=== PATIENT | female | born 1955 | race Caucasian/White ===

== ENCOUNTER → 2023-11-19 13:06 | Outpatient (REF) | payer OTHER, SELFPAY | LOC: WDC 13:06 | PROVIDERS: ATTENDING PHYSICIAN Internal Medicine | DX: Z12.31 Encounter for screening mammogram for malignant neoplasm of breast (principal) | CPT/HCPCS: 77063; 77067 ==

== ENCOUNTER → 2024-01-26 14:02 | Outpatient (REF) | payer OTHER, SELFPAY | LOC: RAD 14:02 | PROVIDERS: ATTENDING PHYSICIAN Physician Assistant; FAMILY PHYSICIAN Internal Medicine | DX: R19.5 Other fecal abnormalities (principal) | CPT/HCPCS: 74177; Q9967 ==

== ENCOUNTER 2025-01-22 14:21 | Emergency (ER) | payer OTHER, SELFPAY ==
[2025-01-22 14:22] VITALS: BP 154/72
--- NOTE | 2025-01-22 16:48 | ED.GENMED ---
History of Present Illness
General
Chief Complaint: Fall
Time Seen by Provider: 01/22/25 16:00
History of Present Illness
History of Present Illness:
69-year-old female presents to the emergency department for evaluation of left ankle injury, she slipped and inverted the ankle while walking. She is not able to bear weight on the affected leg. Pain is predominantly to the lateral ankle
Past History
Past History
ED Past Medical History: Other
Social History
Tobacco: Non-smoker
Alcohol: Occasional
Family History
Family History: Other
Review of Systems
Review of Systems
Allergies reviewed?: Yes
All Other Systems: ROS reviewed and negative except as documented in HPI and ROS
Phy Exam
Physical Exam
Physical Exam:
GEN: Well appearing, NAD, WDWN
HEENT: Oral mucosa moist, no scleral icterus
Cardiac: Regular rate
Lung: No respiratory distress, no tachypnea
MSK: Moderate swelling to the left lateral malleolus, no reproducible tenderness to the lateral knee/proximal fibula, base of the fifth metatarsal, or medial ankle joint. Range of motion is normal.
Skin: Good color, no pallor or jaundice, no rashes
Neuro: AO x3, moves all extremities freely
Psych: Calm, cooperative
Course
Orders/Labs/Results
Orders:
Orders
01/22/25 16:42
Ankle, left 3 view CR [CR Ankle - Left Min 3 Views ] Urgent
Comment:
Reason For Exam: pain
01/22/25 16:49
Crutches-Treatment ONCE
Ortho Boot Left- Treatment ONCE
Short or tall?: Short
Vital Signs
Initial and Last Documented VS:
Initial Vital Signs
Temp Pulse Resp BP Pulse Ox
97.8 F 66 18 154/72 98
01/22/25 14:22 01/22/25 14:22 01/22/25 14:22 01/22/25 14:22 01/22/25 14:22
Last Documented Vital Signs
Temp Pulse Resp BP Pulse Ox
97.8 F 66 18 154/72 98
01/22/25 14:22 01/22/25 14:22 01/22/25 14:22 01/22/25 14:22 01/22/25 14:22
MDM/Problems Addressed
MDM/Problems Addressed:
X-ray shows a mild avulsion fracture of the distal fibula, placed in orthopedic boot and recommend outpatient orthopedic follow-up
*Critical Care Note
Total Time (30-74mins, 75-104mins- exclusive of procedures): Not Applicable
ED Attending Note
-
Portions of this chart may have been created with voice recognition software.� Occasional wrong word or��sound alike� substitutions may have occurred due to the inherent limitations of voice recognition software.
Discharge Plan
Departure
Patient Disposition: Home (Routine Discharge)
Date of Disposition: 01/22/25
Time of Disposition: 16:50
Patient with high blood pressure during this ER visit?: No
Discharge Problem:
Avulsion fracture of distal fibula
Instructions: Avulsion Fracture (DC)
Prescriptions:
No Action
Atenolol
75 mg PO DAILY
Patient Comments:
PATIENT STATED SHE HAS NOT TAKEN IN A COUPLE OF DAYS D/T ILLNESS
Wellbutrin
250 mg PO DAILY
Patient Comments:
PATIENT STATED SHE HAS NOT TAKEN IN A COUPLE OF DAYS D/T ILLNESS
meclizine 25 MG tablet
25 mg PO Q8HPRN PRN (Reason: nausea or vertigo) Qty: 21 0RF
ondansetron 4 MG tablet,disintegrating
4 mg PO TIDPRN PRN (Reason: NAUSEA) Qty: 10 0RF
diazepam 5 MG tablet
5 mg PO TIDPRN PRN (Reason: vertigo) Qty: 15 0RF
cephalexin 500 mg capsule
500 mg PO Q6H Qty: 28 0RF
Referrals:
Jony Harmon DO [Family Provider] -
Irvin Zazueta MD [Active] -
Activity Restrictions/Additional Instructions:
Use the boot at all times when upright and walking. You may bear weight in the boot as tolerated by pain. Crutches can be used if necessary. Elevate and ice the ankle for the next several days frequently. Follow-up with orthopedics at your
convenience. You may use Tylenol and ibuprofen as needed for pain
Interventions
Interventions:
*Risk Screen - Suicide Last Done: 01/22/25 14:22
*General Assessment Last Done: 01/22/25 14:22
*Neglect/Abuse Screening Last Done: 01/22/25 17:00
*ED- Fall Risk Assessment Last Done: 01/22/25 17:00
ED-Musculoskeletal Assessment Last Done: 01/22/25 17:00
ED- Neurological Assessment Last Done: 01/22/25 17:00
ED-Skin Assessment Last Done: 01/22/25 17:00
Discharge Date and Time
Discharge Date/Time: 01/22/25 17:25
Print Language: FRISIAN
== END 2025-01-22 17:25 | disposition home or self-care (01) ==
LOC: EMR 14:21
PROVIDERS: EMERGENCY PHYSICIAN Student in an Organized Health Care Education/Training Program; FAMILY PHYSICIAN Internal Medicine
DX: S82.832A Other fracture of upper and lower end of left fibula, initial encounter for closed fracture (principal); Y93.01 Activity, walking, marching and hiking
CPT/HCPCS: 99283; 73610

== ENCOUNTER → 2025-02-18 11:15 | Outpatient (REF) | payer OTHER, SELFPAY | LOC: WDC 11:15 | PROVIDERS: ATTENDING PHYSICIAN Internal Medicine | DX: Z12.31 Encounter for screening mammogram for malignant neoplasm of breast (principal); M85.80 Other specified disorders of bone density and structure, unspecified site | CPT/HCPCS: 77063; 77067; 77080 ==